=== PATIENT | male | born 1945 ===

== ENCOUNTER 2023-11-11 07:37 | Emergency (ER) | payer MEDICARE, OTHER ==
[~2023-11-11] VITALS: Ht 177.8 cm; Wt 77.0 kg
[2023-11-11 08:09] VITALS: TEMP 97.5
[2023-11-11] MEDS ORDERED: LORazepam 2 MG/ML VIAL ONE (08:51)
[2023-11-11] MEDS: LORazepam 2 MG/ML VIAL IVP ONE (09:03)
[2023-11-11 10:30] VITALS: BP 160/82; PULSE 72; RESP 14
== END 2023-11-11 11:30 | disposition short-term general hospital (02) ==
LOC: EMS 07:38
DX: I47.20 Ventricular tachycardia, unspecified (principal); R56.9 Unspecified convulsions
CPT/HCPCS: 99283; 96374; J2060